=== PATIENT | male | born 1990 | race Hispanic/Latino ===

== ENCOUNTER 2017-06-17 00:58 | Emergency (ER) | payer MEDICAID ==
[2017-06-17 01:04] VITALS: PULSE 114; RESP 20; TEMP 97.6; O2SAT 99
[2017-06-17 01:42] LABS: BASO # 0.1 K/uL (0.0-0.2); BASO % 0.7 % (0.0-2.0); EOS # 0.1 K/uL (0.0-0.7); EOS % 0.8 % (0.0-4.0); HEMOGLOBIN 14.2 g/dL (12.0-18.0); LYMPH # 1.4 K/uL (1.0-4.3); LYMPH % 18.2 % (20.0-40.0); MEAN CELL VOLUME 97.7 fl (80.0-94.0); MEAN CORPUSCULAR HEMOGLOBIN 32.4 pg (27.0-31.0); MEAN CORPUSCULAR HGB CONC 33.1 g/dL (33.0-37.0); MEAN PLATELET VOLUME 7.7 fl (7.2-11.7); MONO # 0.2 K/uL (0.0-0.8); NEUT % 78.3 % (50.0-75.0); RBC 4.39 Mil/uL (4.40-5.90); RED CELL DISTRIBUTION WIDTH 14.1 % (11.5-14.5); WHITE BLOOD COUNT 7.6 K/uL (4.8-10.8)
[2017-06-17 01:58] LABS: ALB/GLOB RATIO 1.5 (1.0-2.1); ALBUMIN 4.2 g/dL (3.5-5.0); ALT/SGPT 50 U/L (21-72); AST/SGOT 45 U/L (17-59); BLOOD UREA NITROGEN 16 mg/dl (9-20); CALCIUM 8.9 mg/dL (8.4-10.2); GFR AFRICAN-AMERICAN > 60; GFR NON-AFRICAN AMERICAN > 60
[2017-06-17] MEDS ORDERED: Sodium Chloride 0.9% 1,000 ML IV STA (02:00)
--- NOTE | 2017-06-17 03:44 | ED PDOC ---
HPI: Psych/Substance Abuse Time Seen by Provider: 06/17/17 01:12 Chief Complaint (Nursing): Substance Abuse Chief Complaint (Provider): Substance Abuse History Per: Patient, EMS History/Exam Limitations: no limitations Onset/Duration Of Symptoms: Days (x 1) Current Symptoms Are (Timing): Still Present Additional Complaint(s): Keo is a 26 year old male, with a history of Heroin, who presents to the emergency department via EMS for medical evaluation. As per EMS, patient was found unresponsive on the kitchen floor. Patient was given Narcan. Patient arrives alert and oriented x 3. Patient admits to injecting heroin earlier. Denies SI. Patient reports using heroin for the past 2 months. PMD: Provider TBD Past Medical History Reviewed: Historical Data, Nursing Documentation, Vital Signs Vital Signs: Last Vital Signs Temp 97.6 F 06/17/17 01:02 Pulse 114 H 06/17/17 01:02 Resp 20 06/17/17 01:02 BP Pulse Ox 99 06/17/17 01:02 - Medical History PMH: No Chronic Diseases - Surgical History Surgical History: No Surg Hx - Family History Family History: States: Unknown Family Hx - Social History Alcohol: > 2 Drinks/Day Drugs: Cannabis, Opiates (Heroin) - Allergies Allergies/Adverse Reactions: Allergies Allergy/AdvReac Type Severity Reaction Status Date / Time risperidone [From Risperdal] Allergy RASH Verified 06/17/17 01:01 Review of Systems ROS Statement: Except As Marked, All Systems Reviewed And Found Negative Psych: Negative for: Suicidal ideation Physical Exam - Reviewed Nursing Documentation Reviewed: Yes Vital Signs Reviewed: Yes - Physical Exam Appears: Positive for: Well Head Exam: Positive for: ATRAUMATIC, NORMAL INSPECTION, NORMOCEPHALIC Skin: Positive for: Normal Color Eye Exam: Positive for: Normal appearance ENT: Positive for: Normal ENT Inspection Neck: Positive for: Normal Cardiovascular/Chest: Positive for: Regular Rate, Rhythm Respiratory: Positive for: Normal Breath Sounds. Negative for: Respiratory Distress Gastrointestinal/Abdominal: Positive for: Normal Exam Back: Positive for: Normal Inspection Extremity: Positive for: Normal ROM. Negative for: Deformity Neurologic/Psych: Positive for: Alert - Laboratory Results Result Diagrams: 06/17/17 01:36 06/17/17 01:36 - ECG O2 Sat by Pulse Oximetry: 99 (RA) Pulse Ox Interpretation: Normal Medical Decision Making Medical Decision Making: Time: 01:24 Impression: 26 year old male with heroin overdose Plan: - EKG - Alcohol Serum - CMP - Drug Screen, Urine - CBC - Sodium Chloride 0.9% 1,000 ml IV 1,000 mls/hr - Accucheck At 3:30 AM pt remains awake, alert and is stable for discharge home Serum glucose WNL Dx Heroin Overdose Pt declines detox referral Scribe Attestation: Documented by Serafin Shine, acting as a scribe for Wei Silva MD Provider Scribe Attestation: All medical record entries made by the Scribe were at my direction and personally dictated by me. I have reviewed the chart and agree that the record accurately reflects my personal performance of the history, physical exam, medical decision making, and the department course for this patient. I have also personally directed, reviewed, and agree with the discharge instructions and disposition. Disposition - Clinical Impression Clinical Impression: Accidental heroin overdose - Disposition Disposition: Routine/Home Disposition Time: 03:00 Condition: STABLE Instructions: Opioid Overdose (ED) Forms: [employer] (Belizean)
--- NOTE | 2017-06-17 16:28 | CARD ---
APPROVED REPORT EKG Measurement Heart [id number] <Conclusion> Sinus tachycardia Otherwise normal ECG
== END 2017-06-17 04:17 | disposition home or self-care (01) ==
LOC: H.ER 00:58
DX: T40.1X1A Poisoning by heroin, accidental (unintentional), initial encounter (principal)
CPT/HCPCS: 80053; 80320; 82948; 85025; 93005; 96360; 99282; J7040

== ENCOUNTER 2018-01-05 09:39 | Inpatient (IN) | payer MEDICAID ==
[2018-01-05 09:39] VITALS: BMI 23.7
[2018-01-05 09:57] VITALS: O2SAT 98
[2018-01-05 10:55] LABS: BASO % 0.2 % (0.0-2.0); EOS # 0.1 K/uL (0.0-0.7); EOS % 0.5 % (0.0-4.0); LYMPH # 1.5 K/uL (1.0-4.3); LYMPH % 11.1 % (20.0-40.0); MEAN CORPUSCULAR HEMOGLOBIN 32.1 pg (27.0-31.0); MEAN CORPUSCULAR HGB CONC 34.5 g/dL (33.0-37.0); MEAN PLATELET VOLUME 7.8 fl (7.2-11.7); MONO # 0.8 K/uL (0.0-0.8); MONO % 6.3 % (0.0-10.0); NEUT # 10.8 K/uL (1.8-7.0); NEUT % 81.9 % (50.0-75.0); RBC 4.67 Mil/uL (4.40-5.90); RED CELL DISTRIBUTION WIDTH 13.4 % (11.5-14.5); WHITE BLOOD COUNT 13.2 K/uL (4.8-10.8)
--- NOTE | 2018-01-05 11:05 | ED PDOC ---
HPI: Psych/Substance Abuse Time Seen by Provider: 01/05/18 09:59 Chief Complaint (Nursing): Psychiatric Evaluation Chief Complaint (Provider): Psychiatric Evaluation History Per: Patient History/Exam Limitations: no limitations Onset/Duration Of Symptoms: Days (2x) Current Symptoms Are (Timing): Still Present Associated Symptoms: Depression, Suicidal Thoughts, Suicidal Plan Additional Complaint(s): 27 year old male with a past medical history of depression presents to the ED for psychiatric evaluation. Patient states he has suicidal thoughts onset for 2 days and he plans to jump under the train. Also reports his mother has and he is homeless. Patient uses heroin on a regular basis. Denies any other complaints or homicidal ideation. PMD: No Family Provider Past Medical History Reviewed: Historical Data, Nursing Documentation, Vital Signs Vital Signs: Last Vital Signs Temp 98.6 F 01/05/18 09:45 Pulse 60 01/05/18 09:45 Resp 18 01/05/18 09:45 BP 92/53 L 01/05/18 09:45 Pulse Ox 98 01/05/18 09:52 - Medical History PMH: Anxiety, Depression Denies: Diabetes (Patient denied), Hepatitis (Patient denied), HIV (Patient denied), HTN (Patient denied), Seizures (Patient denied), Sexually Transmitted Disease (Patient denied) - Family History Family History: States: Unknown Family Hx - Social History Current smoker - smoking cessation education provided: Yes Drugs: Other (heroin) - Immunization History Hx Tetanus Toxoid Vaccination: Yes Hx Influenza Vaccination: Yes - Home Medications Home Medications: Ambulatory Orders Medication Instructions Recorded Benztropine [Benztropine Mesylate] 1 mg PO HS 12/26/17 Haloperidol [Haldol] 2 mg PO HS 12/26/17 Mirtazapine [Remeron] 15 mg PO HS 12/26/17 Gabapentin [Neurontin] 100 mg PO TID #60 cap 01/01/18 traZODone [Desyrel] 100 mg PO HS PRN #30 tab 01/01/18 - Allergies Allergies/Adverse Reactions: Allergies Allergy/AdvReac Type Severity Reaction Status Date / Time risperidone [From Risperdal] Allergy Mild RASH Verified 01/05/18 09:52 quetiapine [From Seroquel] AdvReac RASH Verified 01/05/18 09:52 Review of Systems ROS Statement: Except As Marked, All Systems Reviewed And Found Negative Psych: Positive for: Depression, Suicidal ideation. Negative for: Other ( Homicidal ideation) Physical Exam - Reviewed Nursing Documentation Reviewed: Yes Vital Signs Reviewed: Yes - Physical Exam Appears: Positive for: Non-toxic, No Acute Distress Head Exam: Positive for: ATRAUMATIC, NORMAL INSPECTION, NORMOCEPHALIC Skin: Positive for: Normal Color, Warm, Dry Eye Exam: Positive for: Normal appearance, EOMI, PERRL ENT: Positive for: Normal ENT Inspection Neck: Positive for: Normal, Painless ROM, Supple. Negative for: Decreased ROM Cardiovascular/Chest: Positive for: Regular Rate, Rhythm. Negative for: Murmur Respiratory: Positive for: Normal Breath Sounds. Negative for: Decreased Breath Sounds, Wheezing, Respiratory Distress Gastrointestinal/Abdominal: Positive for: Normal Exam, Bowel Sounds, Soft. Negative for: Tenderness, Guarding, Rebound Back: Positive for: Normal Inspection. Negative for: L CVA Tenderness, R CVA Tenderness Extremity: Positive for: Normal ROM. Negative for: Tenderness, Pedal Edema, Deformity Neurologic/Psych: Positive for: Alert, Oriented (x3). Negative for: Motor/ Sensory Deficits - Laboratory Results Result Diagrams: 01/05/18 10:52 01/05/18 10:52 - ECG O2 Sat by Pulse Oximetry: 98 (RA) Pulse Ox Interpretation: Normal Medical Decision Making Medical Decision Making: Time: 101 Initial Impression: Depression, Suicidal ideation, substance abuse Initial Plan: --Acetaminophen --Alcohol Serum --BMP --Drug Screen --Salicylate --Crisis evaluation --1:1 Observation --Urinalysis --Reevaluation Vital signs are stable. Labs reviewed. In my opinion there are no current acute medical conditions that contraindicate the placement of this patient in a psychiatric unit. Scribe Attestation: Documented by Israel Graves, acting as a scribe for Chula Bagley MD Provider Scribe Attestation: All medical record entries made by the Scribe were at my direction and personally dictated by me. I have reviewed the chart and agree that the record accurately reflects my personal performance of the history, physical exam, medical decision making, and the department course for this patient. I have also personally directed, reviewed, and agree with the discharge instructions and disposition. Disposition - Clinical Impression Clinical Impression: Depression, Drug abuse - Patient ED Disposition Is Patient to be Admitted: Yes Discussed With : Huey Lopes Doctor Will See Patient In The: Hospital Counseled Patient/Family Regarding: Studies Performed, Diagnosis - Disposition Disposition Time: 11:40 Condition: FAIR - Pt Status Changed To: Hospital Disposition Of: Inpatient - Admit Certification Admit to Inpatient:: After my assessment, the patient will require hospitalization for at least two midnights. This is because of the severity of symptoms shown, intensity of services needed, and/or the medical risk in this patient being treated as an outpatient. - POA Present On Arrival: None
[2018-01-05 11:15] LABS: ACETAMINOPHEN < 10.0 ug/ml (10.0-30.0); BLOOD UREA NITROGEN 7 mg/dl (9-20); CALCIUM 9.4 mg/dL (8.4-10.2); GFR AFRICAN-AMERICAN > 60; GFR NON-AFRICAN AMERICAN > 60; SALICYLATE < 1.0 mg/dl
[2018-01-05 12:20] LABS: SPERM URINE RARE /hpf; URINE BACTERIA RARE (<OCC); URINE BILIRUBIN NEGATIVE (NEGATIVE); URINE BLOOD NEGATIVE (NEGATIVE); URINE CLARITY SLIGHTY-CLOUDY (Clear); URINE COLOR YELLOW (YELLOW); URINE GLUCOSE (UA) NEG (Normal); URINE LEUKOCYTE ESTERASE NEG Leu/uL (Negative); URINE PROTEIN NEGATIVE (NEGATIVE); URINE UROBILINOGEN 0.2-1.0 mg/dL (0.2-1.0)
[2018-01-05 12:29] LABS: BARBITURATES, UR NEGATIVE (NEGATIVE); BENZODIAZEPINES, UR NEGATIVE (NEGATIVE); OPIATES, UR POSITIVE (NEGATIVE); PHENCYCLIDINE, UR NEGATIVE (NEGATIVE)
[2018-01-05] MEDS ORDERED: DiphenhydrAMINE 50 mg/ml Inj IM PRN (13:48)
[2018-01-05] MEDS ORDERED: Alum-Mag Hydrox-Simethicone Susp (30 mL) PO PRN (13:48)
[2018-01-05] MEDS ORDERED: Magnesium Hydroxide Susp 30 ml UD PO PRN (13:48)
--- NOTE | 2018-01-05 14:16 | PCM.PSYCH ---
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, the recent of his mother by overdose and becoming homeless pt [facility] [place] , has not been compliant with medications, relapsed on opiates using about 5 bags every other day, on the day of evaluation he started experiencing suicidal ideation with plan to overdose, pt came to ER seeking help on the unit pt presenting with depressed mood and affect, reported feeling hopeless and helpless, expressed passive suicidal ideation without active plan on the unit denied any current command hallucinations denied , denied homicidal ideation Current Medications: Active Medications Generic Name Dose Route Start Last Admin Trade Name Freq PRN Reason Stop Dose Admin Acetaminophen 650 mg 01/05/18 13:48 Tylenol 325mg Tab PO Q4 PRN Pain, moderate (4-7) Al Hydrox/Mg Hydrox/Simethicone 30 ml 01/05/18 13:48 Maalox Plus 30 Ml PO Q4 PRN Dyspepsia Clonidine HCl 0.1 mg 01/05/18 17:00 Catapres PO TID LUIGI Clonidine HCl 0.1 mg 01/05/18 13:58 Catapres PO Q12 PRN Opiate reversal Cyclobenzaprine HCl 5 mg 01/05/18 13:59 Flexeril PO TID PRN Muscle spasm Diphenhydramine HCl 50 mg 01/05/18 13:48 Benadryl IM Q6 PRN Extrapyramidal S/S Unable PO Diphenhydramine HCl 50 mg 01/05/18 13:48 Benadryl PO Q6 PRN Extrapyramidal Symptoms Gabapentin 100 mg 01/05/18 17:00 Neurontin PO TID LUIGI Haloperidol 5 mg 01/05/18 13:48 Haldol PO Q6 PRN Agitation Haloperidol Lactate 5 mg 01/05/18 13:48 Haldol IM Q6 PRN Agitation, Unable to Take PO Hydroxyzine Pamoate 50 mg 01/05/18 13:58 Vistaril PO Q8 PRN Anxiety Loperamide HCl 2 mg 01/05/18 13:54 Imodium PO QID PRN Diarrhea Magnesium Hydroxide 30 ml 01/05/18 13:48 Milk Of Magnesia PO HS PRN Constipation Trazodone HCl 100 mg 01/05/18 13:57 Desyrel PO HS PRN Insomnia Past Psychiatric History - Past Psychiatric History Explanation of prior treatment: pt has hx of rehab at [facility] at age 16 has hx of inpatient hospitalization with poor compliance with follow up History of ETOH/Drug Use: cocaine , cannabis and opiate abuse History of Family Illness: mother hx of substance dependence and overdose Pertinent Medical Hx (Current Medical&Sleep Prob, Allergies): Allergies Allergy/AdvReac Type Severity Reaction Status Date / Time risperidone [From Risperdal] Allergy Mild RASH Verified 01/05/18 09:52 quetiapine [From Seroquel] AdvReac RASH Verified 01/05/18 09:52 Mirtazapine [Remeron] 15 mg PO HS 12/26/17 Gabapentin [Neurontin] 100 mg PO TID #60 cap 01/01/18 traZODone [Desyrel] 100 mg PO HS PRN #30 tab 01/01/18 Mental Status Examination - Personal Presentation Personal Presentation: Looks stated age - Affect Affect: Constricted, Depressed - Motor Activity Motor Activity: Psychomotor Retardation - Reliability in Providing Information Reliability in Providing Information: Poor, due to altered mood - Speech Speech: Relevant - Mood Mood: Depressed, Anxious - Formal Thought Process Formal Thought Process: Circumstantial - Hallucinations/Delusions Additional comments: denied perceptual disturbances, non elicited - Obsessions/Compulsions Obsessions: No Compulsions: No - Cognitive Functions Abstract Thinking: [place] Judgement: Imparied, as evidence by: Poor judgement, Imparied, as evidence by: Lack of insight into illness - Risk Risk: Withdrawal, Diminished functioning - Strength & Assets Inventory Strength & Assets Inventory: Life experience - Limitations Additional comments: poor compliance DSM 5 DX - DSM 5 DSM 5 Diagnosis: substance induced mood disorder opiate abuse cannabis abuse depression - Recommended/Plan of Treatment Treatment Recommendations and Plan of Treatment: start clonidine protocol and monitor pt for symptoms and signs of opiate withdrawal start neurontin 100mg tid for anxiety start lexapro 10mg daily motivational group and supportive therapy Projected ELOS: 7 days Prognosis: guarded
--- NOTE | 2018-01-05 17:55 | PCM.BM ---
<Yanet Phelps - Last Filed: 01/05/18 17:53> Treatment Plan Problems - Problems identified on initial assessmt Problem 1 Date Initiated: 01/05/18 Time Initiated: 14:00 Assessment reference: NA Status: Active Priority: 1 Treatment assets and liabiliti Patient Assests: adapts well, cooperative, educated, self-reliant, ADL independent, physically healthy, negotiates basic needs, cognitively intact Patient Liabilities: live alone, financial problems, poor support system, substance abuse, legal issue - Milieu Protocol Milieu Narrative: start clonidine protocol and monitor pt for symptoms and signs of opiate withdrawal start neurontin 100mg tid for anxiety start lexapro 10mg daily motivational group and supportive therapy Discharge/Continuing Care - Treatment Team Participation Patient/Family/SO Statement: start clonidine protocol and monitor pt for symptoms and signs of opiate withdrawal start neurontin 100mg tid for anxiety start lexapro 10mg daily motivational group and supportive therapy <Dhruv Winston - Last Filed: 01/08/18 12:11> Family Contact Family involvement: Famliy/SO not involved Family contact: Patient declines to allow family contact at present Family contact name: Pt denied. Family contact comment: 0 - Goals for Treatment Patient goals for treatment: Pt reported he would like to be placed on medications ot better manage his anxiety, insomnia and depression. Discharge/Continuing Care - Education Needs Education Needs: Patient Medication, Patient Diagnosis/Disease Process, Patient Coping Skills, Patient Anger Management skills, Patient Placement options, Patient Community resources, Patient Aftercare Safety Plan - Discharge Discharge Criteria: Tolerates medication w/o severe side effects, Free of Suicidal thoughts, Free of agitation, Normal sleep pattern, No longer exhibiting s/s of withdrawal, Reduction of target symptoms Discharge to:: Jail - Additional Comments 01/08/18 12:13 Pt was seen in treatment team today and he admitted to negative racing thoughts and also thoughts surrounding his many life stressors and past traumas. Pt admitted to predominant social anxiety that causes him to isolate in his room. Pt spoke about how being more visible on the unit is a goal of his, but he has negative thoughts that other patients are judging him. Pt admitted to feeling "very depressed" at this time. Pt discussed being in rehab at 16 for cocaine. Rehab and [facility] were discussed as aftercare plans. - Treatment Team Participation Discussed with Family/SO: No Was Patient/Family/SO present at Treatment Team Meeting: Yes <Huey Lopes - Last Filed: 01/11/18 09:02> - Diagnosis (1) Heroin abuse Status: Acute Interventions: 01/11/18 09:01 motivational therapy
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
[2018-01-05 23:08] VITALS: RESP 18
[2018-01-06 08:08] LABS: T4 5.5 ug/dl (5.5-11.0)
--- NOTE | 2018-01-06 13:39 | PCM.PYCHPN ---
Psychiatric Progress Note - Psychiatric Progress Note Patient seen today, length of contact: pt evaluated discussed with team chart reviewed Patient Chief Complaint: I am going through withdrawals Problems Identified/Issues Discussed: pt evaluated, seen in bed , presenting with depressed mood and affect, low energy, anhedonia motivational therapy provided , discussed with pt effect of opiate use on current mental status , discussed referral to inpatient rehab encouraged pt to attend groups pt denied any current active suicidal ideation , denied perceptual disturbances DSM 5 Symptoms Update: substance induced mood disorder opiate use continuous depression Medication Change: No Medical Record Reviewed: Yes Mental Status Examination - Cognitive Function Orientation: Person, Place, Situation Memory: Intact Attention: WNL Concentration: Poor Association: WNL Fund of Knowledge: WNL Decription of patient's judgement and insights: partial insight and poor judgment - Mood Mood: Depressed, Anxious - Affect Affect: Constricted, Depressed - Speech Speech: Soft - Formal Thought Process Formal Thought Process: Circumstantial Psychotic Thoughts and Behaviors: pt denied perceptual disturbances, non elicited - Suicidal Ideation Suicidal Ideation: No - Homicidal Ideation Homicidal Ideation: No Goal/Treatment Plan - Goal/Treatment Plan Need for Continued Stay: Remain at risks for inpatient hospitalization, Severe depression anxiety, Discharge may exacerbated symptoms, Severe functional impairment Progress Toward Problem(s) and Goals/Treatment Plan: continue clonidine protocol and monitor pt for symptoms and signs of opiate withdrawal neurontin 100mg tid for anxiety motivational group and supportive therapy pt continues to be high risk for relapse referral to inpatient rehab
--- NOTE | 2018-01-07 11:31 | PCM.PYCHPN ---
Psychiatric Progress Note - Psychiatric Progress Note Patient seen today, length of contact: pt evaluated discussed with team chart reviewed Patient Chief Complaint: I still feel down Problems Identified/Issues Discussed: pt evaluated, seen in bed , continues to report depressed mood and affect, motivational therapy provided , discussed with pt effect of opiate use on current mental status, possible referral to inpatient rehab, encouraged pt to attend groups, discussed starting wellbutrin to help with depressions and cravings pt denied any current active suicidal ideation , denied perceptual disturbances Medical Problems: pt has hx of rehab at [facility] at age 16 has hx of inpatient hospitalization with poor compliance with follow up DSM 5 Symptoms Update: substance induced mood disorder opiate use disorder continuous Medication Change: Yes (start wellbutrin) Medical Record Reviewed: Yes Mental Status Examination - Cognitive Function Orientation: Person, Place, Situation Memory: Intact Attention: WNL Concentration: Poor Association: WNL Fund of Knowledge: WNL Decription of patient's judgement and insights: partial insight and poor judgment - Mood Mood: Depressed, Anxious - Affect Affect: Constricted, Depressed - Speech Speech: Soft - Formal Thought Process Formal Thought Process: Circumstantial Psychotic Thoughts and Behaviors: pt denied perceptual disturbances, non elicited - Suicidal Ideation Suicidal Ideation: No - Homicidal Ideation Homicidal Ideation: No Goal/Treatment Plan - Goal/Treatment Plan Need for Continued Stay: Remain at risks for inpatient hospitalization, Severe depression anxiety, Discharge may exacerbated symptoms, Severe functional impairment Progress Toward Problem(s) and Goals/Treatment Plan: discontinue clonidine neurontin 100mg tid for anxiety start wellbutrin 75mg daily motivational group and supportive therapy pt continues to be high risk for relapse referral to inpatient rehab
--- NOTE | 2018-01-08 15:22 | PCM.PYCHPN ---
Psychiatric Progress Note - Psychiatric Progress Note Patient seen today, length of contact: pt evaluated discussed with team chart reviewed Patient Chief Complaint: I get very anxious Problems Identified/Issues Discussed: pt evaluated, with treatment team, reported continues to feel anxious, discussed increasing dose of neurontin, motivational therapy provided , discussed with pt effect of opiate use on current mental status , discussed with pt joining inpatient rehab and possibility of being started on maintenance treatment discussed increasing wellbutrin to help with depressions and cravings, no reported side effects pt denied any current active suicidal ideation , denied perceptual disturbances Medical Problems: pt has hx of rehab at [facility] at age 16 has hx of inpatient hospitalization with poor compliance with follow up DSM 5 Symptoms Update: substance induced mood disorder' opiate abuse continuous depression Medication Change: Yes (increase wellbutrin) Medical Record Reviewed: Yes Mental Status Examination - Cognitive Function Orientation: Person, Place, Situation Memory: Intact Attention: WNL Concentration: WNL Association: WN Fund of Knowledge: [facility] Decription of patient's judgement and insights: partial insight and poor judgment - Mood Mood: Depressed, Anxious - Affect Affect: Constricted, Depressed - Speech Speech: Appropriate - Formal Thought Process Formal Thought Process: Circumstantial Psychotic Thoughts and Behaviors: pt denied perceptual disturbances, non elicited - Suicidal Ideation Suicidal Ideation: No - Homicidal Ideation Homicidal Ideation: No Goal/Treatment Plan - Goal/Treatment Plan Need for Continued Stay: Remain at risks for inpatient hospitalization, Severe depression anxiety, Discharge may exacerbated symptoms, Severe functional impairment Progress Toward Problem(s) and Goals/Treatment Plan: increase neurontin 300mg tid for anxiety increase wellbutrin 150mg daily motivational group and supportive therapy pt continues to be high risk for relapse referral to inpatient rehab
[2018-01-09] MEDS: buPROPion SR 150 MG TABLET PO SCH (08:57)
--- NOTE | 2018-01-09 16:36 | PCM.PYCHPN ---
Psychiatric Progress Note - Psychiatric Progress Note Patient seen today, length of contact: pt evaluated discussed with team chart reviewed Patient Chief Complaint: reports somewhat less anxious trazodone reported caused tingling in lower extremeties Problems Identified/Issues Discussed: per medicine per psychiatry per nursing per social work per recreational therapy Medical Problems: per chart Diagnostic Results: per chart DSM 5 Symptoms Update: alteration in mood alteration in sleep reports numbness tingling lower extremeties with trazodone reports positive response to remeron 7.5mg po hs Medication Change: Yes (mirtazepine 7.5mg po hs) Medical Record Reviewed: Yes Consults ordered or reviewed: pt seen by hospitalist Mental Status Examination - Cognitive Function Orientation: Person, Place, Situation Memory: Intact Attention: WNL Concentration: WNL Association: WNL Fund of Knowledge: WN Decription of patient's judgement and insights: impaired - Mood Mood: Depressed, Anxious - Affect Affect: Constricted, Depressed - Speech Speech: Appropriate - Formal Thought Process Formal Thought Process: Circumstantial - Suicidal Ideation Suicidal Ideation: No - Homicidal Ideation Homicidal Ideation: No Goal/Treatment Plan - Goal/Treatment Plan Need for Continued Stay: Remain at risks for inpatient hospitalization, Severe depression anxiety, Discharge may exacerbated symptoms, Severe functional impairment Progress Toward Problem(s) and Goals/Treatment Plan: inpt milieu adjust rx per clinical status discontinue trazodone 2nd side effects start mirtazepine 7.5mg po hs-review possible dry mouth, increased appetite, get up slowly falls precautions discharge planning in progress
[2018-01-10] MEDS: buPROPion SR 150 MG TABLET PO SCH (08:39)
--- NOTE | 2018-01-10 18:22 | PCM.PYCHPN ---
Psychiatric Progress Note - Psychiatric Progress Note Patient seen today, length of contact: pt evaluated discussed with team chart reviewed Patient Chief Complaint: reports sleeping somewhat improved with mirtazepine 7.5mg po hs-has history of responding positively to mirtazepine 15mg po hs-pt has list pf his medications- review buproprion and mirtazepine both antidepressants(atypical) if mirtazepine increased to 15mg will act as antidepressant and combined with buproprion potential to cause serotonin syndrome , possible hyperactivity, review burproprion is also helping with smoking cessation. review will decrease burproprion to 100mg sr daily and increase mirtazepine 15mg po hs-assess/ monitor for changes. review gabapentin may help to stabilize mood and serve to help decrease likely [place] of mood swings-review that gabapentin not fda approved for mood but has been shown clinically to help with some people-pt verbally agreeable to plan Problems Identified/Issues Discussed: per medicine per psychiatry per nursing per social work per recreational therapy Medical Problems: per chart Diagnostic Results: per chart DSM 5 Symptoms Update: somewhat improving mood, somewhat improving insomnia Medication Change: Yes (increase mirtazepine to 15mg po hs decrease buproprion sr to 100mg po daily) Medical Record Reviewed: Yes Consults ordered or reviewed: pt seen by hospitalist Mental Status Examination - Cognitive Function Orientation: Person, Place, Situation Memory: Intact Attention: WNL Concentration: WNL Association: WNL Fund of Knowledge: WN Decription of patient's judgement and insights: impaired - Mood Mood: Depressed, Anxious Additional comments: improving - Affect Affect: Broad, Depressed - Speech Speech: Appropriate - Formal Thought Process Formal Thought Process: No Impairment Psychotic Thoughts and Behaviors: has list of pt information related to current medications ask appropriate questions related to current treatment - Suicidal Ideation Suicidal Ideation: No - Homicidal Ideation Homicidal Ideation: No Goal/Treatment Plan - Goal/Treatment Plan Need for Continued Stay: Remain at risks for inpatient hospitalization, Severe depression anxiety, Discharge may exacerbated symptoms, Severe functional impairment Progress Toward Problem(s) and Goals/Treatment Plan: inpt milieu adjust rx per clinical status start mirtazepine 15mg po hs-review possible dry mouth, increased appetite, get up slowly decrease buproprion sr to 100mg po day-review may have less of a benefit related to smoking cessation discharge planning in progress Estimated Date of D/C: 01/12/18 - Smoking Cessation Smoking Cessation Initiated: Yes
--- NOTE | 2018-01-11 14:57 | PCM.PYCHPN ---
Psychiatric Progress Note - Psychiatric Progress Note Patient seen today, length of contact: pt evaluated discussed with team chart reviewed Patient Chief Complaint: I am less anxious Problems Identified/Issues Discussed: pt evaluated, with treatment team,reported feeling less anxious with neurontin , no reported side effects of medications, reported positive effect of wellbutrin pt motivated to start inpatient rehab, motivational therapy provided pt attending groups, compliant with treatment , stable affect pt denied any current active suicidal ideation , denied perceptual disturbances Medical Problems: pt has hx of rehab at [facility] at age 16 has hx of inpatient hospitalization with poor compliance with follow up DSM 5 Symptoms Update: substance induced mood disorder opiate use continuous Medication Change: No Medical Record Reviewed: Yes Mental Status Examination - Cognitive Function Orientation: Person, Place, Situation Memory: Intact Attention: WNL Concentration: WNL Association: WNL Fund of Knowledge: WNL - Mood Mood: Anxious - Affect Affect: Broad, Depressed - Speech Speech: Appropriate - Formal Thought Process Formal Thought Process: No Impairment Psychotic Thoughts and Behaviors: pt denied psychotic symptoms, non elicited - Suicidal Ideation Suicidal Ideation: No - Homicidal Ideation Homicidal Ideation: No Goal/Treatment Plan - Goal/Treatment Plan Need for Continued Stay: Remain at risks for inpatient hospitalization, Severe depression anxiety, Discharge may exacerbated symptoms, Severe functional impairment Progress Toward Problem(s) and Goals/Treatment Plan: neurontin 300mg tid for anxiety wellbutrin 100 mg daily motivational group and supportive therapy referral to inpatient rehab Estimated Date of D/C: 01/12/18
--- NOTE | 2018-01-12 11:57 | PCM.PYCHDC ---
Mental Status Examination - Mental Status Examination Orientation: Person, Place, Situation Memory: Intact Mood: Neutral Affect: Broad Speech: Appropriate Attention: WNL Concentration: WNL Association: WNL Fund of Knowledge: WNL Formal Thought Process: No Impairment Description of patient's judgement and insight: partial insight and poor judgment Psychotic Thoughts and Behaviors: pt denied psychotic symptoms, non elicited Suicidal Ideation: No Current Homicidal Ideation?: No Discharge Summary - Discharge Note Reason for Hospitalization: pt is a 27ys old male with previous psychiatric diagnosis of polysubstance use and depression, pt reported has been increasingly depressed in the context of 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, the recent of his mother by overdose and becoming homeless pt was recently discharged from [facility] , has not been compliant with medications, relapsed on opiates using about 5 bags every other day, on the day of evaluation he started experiencing suicidal ideation with plan to overdose, pt came to ER seeking help on the unit pt presenting with depressed mood and affect, reported feeling hopeless and helpless, expressed passive suicidal ideation without active plan on the unit denied any current command hallucinations denied , denied homicidal ideation Consultations:: List each consultation separately and include: 1. Reason for request. 2. Findings. 3. Follow-up Summary of Hospital Course include:: 1. Description of specific treatment plan utilized for patients during their course of treatmen. 2. Summarize the time- course for resolution of acute symptoms and/or regressed behaviors. 3. Describe issues identified and worked on during hospitalization. 4. Describe medication utilized. 5. Describe medical problems identified and treated. 6. Reassessment of suicide risk Summary of Hospital Course: pt on admission was started on clonidine protocol and monitored for symptoms and signs of opiate withdrawal pt was started on neurontin for anxiety and wellbutrin for depression and cravings motivational therapy was provided in reference to opiate use pt was advised on discharge about risk of relapse and possible accidental overdose on discharge mental status was stable pt denied any current suicidal or homicidal ideation denied perceptual disturbances pt was referred by vp digital marketing social media and crm to Maintenance treatment clinic at [facility] [place] - Diagnosis (1) Heroin abuse Current Visit: Yes Status: Acute - Final Diagnosis (DSM 5) Condition upon Discharge: FAIR DSM 5: substance induced mood disorder with depressive features opiate use diorder continuous Disposition: HOME/ ROUTINE Follow-up Treatment Plan: neurontin 300mg tid for anxiety wellbutrin 100 mg daily motivational group and supportive therapy referral to inpatient rehab Prescriptions/Medication Reconciliation: buPROPion SR [Wellbutrin] 100 mg PO DAILY 30 Days #30 tab Gabapentin [Neurontin] 300 mg PO TID 30 Days #90 cap Mirtazapine [Remeron] 15 mg PO HS 30 Days #30 tab Nicotine 21 mg/24 hr [Nicoderm Cq] 1 patch TD DAILY 30 Days #30 patch - Smoking Cessation Smoking Cessation Medication prescribed: Yes - Antipsychotic Medications Pt discharged on 2 or more routine antipsychotic medications: No
[2018-01-12 18:18] VITALS: BP 120/73; PULSE 73; TEMP 98.2
== END 2018-01-12 15:45 | disposition home or self-care (01) | DRG 748 ==
LOC: H.ER 09:39 → H.ERHOLD 11:49 → H.PSYCH 12:59
PROVIDERS: ADMIT Psychiatry & Neurology Psychiatry; ATTEND Psychiatry & Neurology Psychiatry
PROC: GZHZZZZ Group Psychotherapy (ICD-10-PCS; principal; 2018-01-05)
PROC: HZ57ZZZ Individual Psychotherapy for Substance Abuse Treatment, Motivational Enhancement (ICD-10-PCS; 2018-01-05)
PROC: GZ56ZZZ Individual Psychotherapy, Supportive (ICD-10-PCS; 2018-01-05)
DX: F11.94 Opioid use, unspecified with opioid-induced mood disorder (principal); F12.10 Cannabis abuse, uncomplicated; R45.851 Suicidal ideations; G47.00 Insomnia, unspecified; Z59.0 Homelessness; F17.210 Nicotine dependence, cigarettes, uncomplicated; Z91.14 Patient's other noncompliance with medication regimen; F32.9 Major depressive disorder, single episode, unspecified; F41.9 Anxiety disorder, unspecified

== ENCOUNTER 2018-03-08 08:18 | Emergency (ER) | payer MEDICAID, OTHER ==
[2018-03-08 08:21] VITALS: BMI 22.3
--- NOTE | 2018-03-08 10:45 | ED PDOC ---
HPI: Psych/Substance Abuse Time Seen by Provider: 03/08/18 09:09 Chief Complaint (Nursing): Substance Abuse Chief Complaint (Provider): Substance Abuse History Per: Patient, Other (PD) History/Exam Limitations: no limitations Modifying Factor(s): Other (Heroi) Additional Complaint(s): 27 years old male brought to ED by EMS for evaluation of substance abuse. Patient admits to heroin use and was given Narcan. He offers no medical complaints at this time. PMD: non provided Past Medical History Reviewed: Historical Data, Nursing Documentation, Vital Signs Vital Signs: Last Vital Signs Temp 98.8 F 03/08/18 08:22 Pulse 99 H 03/08/18 08:34 Resp 17 03/08/18 08:34 BP 132/66 03/08/18 08:34 Pulse Ox 95 03/08/18 08:34 - Medical History PMH: Anxiety, Depression (found mother , 2 mos ago), Schizophrenia (IV drug heroin X2yr) Denies: Diabetes (Patient denied), Hepatitis (Patient denied), HIV (Patient denied), HTN (Patient denied), Chronic Kidney Disease, Seizures (Patient denied), Sexually Transmitted Disease (Patient denied) - Surgical History Surgical History: No Surg Hx - Family History Family History: States: Unknown Family Hx - Social History Current smoker - smoking cessation education provided: Yes Alcohol: None Drugs: Other (Heroin) - Immunization History Hx Tetanus Toxoid Vaccination: Yes Hx Influenza Vaccination: Yes - Home Medications Home Medications: Ambulatory Orders Medication Instructions Recorded Gabapentin [Neurontin] 300 mg PO TID 30 Days #90 cap 01/11/18 Mirtazapine [Remeron] 15 mg PO HS 30 Days #30 tab 01/11/18 Nicotine 21 mg/24 hr [Nicoderm Cq] 1 patch TD DAILY 30 Days #30 patch 01/11/18 buPROPion SR [Wellbutrin] 100 mg PO DAILY 30 Days #30 tab 01/11/18 Naloxone HCl [Narcan] 1 spray NS ONCE PRN #1 spray 03/08/18 - Allergies Allergies/Adverse Reactions: Allergies Allergy/AdvReac Type Severity Reaction Status Date / Time risperidone [From Risperdal] Allergy Mild RASH Verified 03/08/18 08:33 quetiapine [From Seroquel] AdvReac RASH Verified 03/08/18 08:33 Review of Systems ROS Statement: Except As Marked, All Systems Reviewed And Found Negative Psych: Positive for: Other (Substance abuse) Physical Exam - Reviewed Nursing Documentation Reviewed: Yes Vital Signs Reviewed: Yes - Physical Exam Appears: Positive for: Non-toxic, No Acute Distress Head Exam: Positive for: ATRAUMATIC, NORMOCEPHALIC Skin: Positive for: Normal Color, Warm, Dry Eye Exam: Positive for: Other (Constricted pupils bilaterally) Neck: Positive for: Normal, Painless ROM, Supple Cardiovascular/Chest: Positive for: Regular Rate, Rhythm. Negative for: Murmur Respiratory: Positive for: Normal Breath Sounds. Negative for: Wheezing Gastrointestinal/Abdominal: Positive for: Normal Exam, Soft. Negative for: Tenderness Extremity: Positive for: Normal ROM. Negative for: Pedal Edema, Swelling Neurologic/Psych: Positive for: Alert, Oriented (x3) - ECG O2 Sat by Pulse Oximetry: 95 (RA) Pulse Ox Interpretation: Normal Medical Decision Making Medical Decision Making: Scribe Attestation: Documented by Kinjal Cox, acting as a scribe for Cris Culp MD. Provider Scribe Attestation: All medical record entries made by the Scribe were at my direction and personally dictated by me. I have reviewed the chart and agree that the record accurately reflects my personal performance of the history, physical exam, medical decision making, and the department course for this patient. I have also personally directed, reviewed, and agree with the discharge instructions and disposition. Disposition - Clinical Impression Clinical Impression: Accidental heroin overdose - Disposition Referrals: [facility] [Outside] Condition: IMPROVED Prescriptions: Naloxone HCl [Narcan] 1 spray NS ONCE PRN #1 spray PRN Reason: Opiate Reversal Instructions: Narcotic Overdose , How to Give Naloxone Forms: [employer] (Tuvaluan)
[2018-03-08 13:02] VITALS: BP 111/52; PULSE 89; RESP 18; TEMP 98.3; O2SAT 96
== END 2018-03-08 10:55 | disposition home or self-care (01) ==
LOC: H.ER 08:18
DX: T40.1X1A Poisoning by heroin, accidental (unintentional), initial encounter (principal); F17.200 Nicotine dependence, unspecified, uncomplicated; F32.9 Major depressive disorder, single episode, unspecified; F41.9 Anxiety disorder, unspecified